=== PATIENT | male | born 1995 | race African-American/Black ===

== ENCOUNTER 2017-01-02 10:39 | Emergency (ER) | payer BC | END 2017-01-02 14:00 | disposition home or self-care (01) | LOC: ER 10:39 | PROC: 0H98XZZ Drainage of Buttock Skin, External Approach (ICD-10-PCS; principal; 2017-01-02) | DX: L05.01 Pilonidal cyst with abscess (principal) | CPT/HCPCS: 99283; A9270-GY; J2405 ==